=== PATIENT | male | born 1975 | race Caucasian/White ===

== ENCOUNTER 2019-06-11 13:13 | Outpatient (CLI) | payer OTHER | END 2019-06-11 13:27 | disposition home or self-care (01) | LOC: RAD 13:13 | DX: M99.01 Segmental and somatic dysfunction of cervical region (principal); M99.02 Segmental and somatic dysfunction of thoracic region; M99.03 Segmental and somatic dysfunction of lumbar region; M99.04 Segmental and somatic dysfunction of sacral region ==

== ENCOUNTER 2023-04-02 15:03 | Outpatient (CLI) | payer OTHER | END 2023-04-02 15:34 | disposition home or self-care (01) | LOC: RAD 15:03 | PROVIDERS: ATTEND General Practice | DX: R05.9 Cough, unspecified (principal); R06.02 Shortness of breath ==

== ENCOUNTER 2023-09-23 14:27 | Outpatient (CLI) | payer OTHER | END 2023-09-23 14:39 | disposition home or self-care (01) | LOC: TOM 14:27 | PROVIDERS: ATTEND General Practice | DX: R05.9 Cough, unspecified (principal) ==